=== PATIENT | female | born 1980 | race Caucasian/White ===

== ENCOUNTER 2018-02-22 17:42 | Emergency (ER) | payer MEDICAID, OTHER ==
[~2018-02-22] VITALS: Ht 172.7 cm; Wt 119.3 kg
[~2018-02-22 17:42] MED LIST: LEVO50TA64 PO; PREN1TAB62 PO
[2018-02-22 17:58] VITALS: BP 152/85
--- NOTE | 2018-02-22 18:38 | NUR ---
FROM LOBBY TO ROOM AT THIS TIME
--- NOTE | 2018-02-22 19:21 | NUR ---
Note melani in EDM - 02/22/18 at 1925 by LUCIO PA TO SEE PT, PT BECAME VERY ANGRY AND ARGUMENTATIVE, DEMANDING MRI. PA ATTEMPTED TO EXPLAIN TO PT THAT MRI IS NOT AN EMERGENCY AND SHOULD BE HANDLED OUT PT, HAPPY TO WRITE A REFERAL. PT STORMED OUT OF ROOM.
== END 2018-02-22 19:25 | disposition home or self-care (01) ==
LOC: ED 19:05
DX: J06.9 Acute upper respiratory infection, unspecified (principal); J03.90 Acute tonsillitis, unspecified
CPT/HCPCS: 71046; 99283